=== PATIENT | female | born 2000 | race Caucasian/White ===

== ENCOUNTER 2023-04-25 06:19 | Emergency (ER) | payer OTHER, SELFPAY ==
--- NOTE | ~2023-04-25 | CT_ITS ---
EXAMINATION: CT abdomen pelvis w con DATE: 04/25/2023 08:23 INDICATION: Nausea and vomiting. Abdominal pain. TECHNIQUE: Computed tomography (CT) of the abdomen and pelvis was performed with 100 mL Omnipaque 350 intravenous contrast. Automated exposure control and iterative reconstruction technique were employe d. The dose-length product was 594.39 mGy-cm. COMPARISON: None. FINDINGS: The visualized portions of the lung bases demonstrate minimal atelectasis. No pleural effus ion. The heart size is normal. No pericardial effusion. There is a small sliding hiatal hernia. The l iver, spleen, gallbladder, pancreas, adrenal glands, and kidneys are normal. There are no dilated loo ps of bowel. The appendix is normal. There are no pathologically enlarged lymph nodes. There is no fr ee intraperitoneal fluid. There is mild lumbar spondylosis. IMPRESSION: 1. Small sliding hiatal hernia. Reviewed, dictated and finalized at location A.
[2023-04-25 06:23] VITALS: BP 134/100; PULSE 77; RESP 15; TEMP 35.7; O2SAT 100
[2023-04-25 06:31] VITALS: BP 130/76; PULSE 79; RESP 15; TEMP 36.3; O2SAT 98
[2023-04-25 06:39] LABS: Basophils Percent Auto 0.2 % (0.2-1.2); Eosinophils Absolute Auto 0.1 K/mm3 (0-0.3); Eosinophils Percent Auto 1.1 % (0-4.4); Hematocrit 44.6 % (37.0-47.0); Immature Granulocyte Absolute 0.04 K/mm3 (0.00-0.031); Immature Granulocyte Percent A 0.3 % (0-0.5); Lymphocytes Absolute Auto 1.64 K/mm3 (0.9-3.2); Mean Corpuscular HGB Conc 33.6 g/dl (32-36); Mean Corpuscular Hemoglobin 29.2 pg (26-34); Mean Corpuscular Volume 86.9 fl (80-100); Mean Platelet Volume 9.9 fl (7.4-10.4); Monocytes Absolute Auto 0.5 K/mm3 (0.1-0.6); Monocytes Percent Auto 3.9 % (2.6-8.5); Neutrophils Absolute Auto 9.5 K/mm3 (1.3-6.7); Neutrophils Percent Auto 80.5 % (45.5-73.1); Platelet Count Result 317 k/mm3 (150-375); Red Blood Count 5.13 M/mm3 (4.2-5.4); Red Cell Distribution Width 12.9 % (11.5-14.5); White Blood Count 11.8 K/mm3 (4.5-10.0)
--- NOTE | 2023-04-25 06:40 | ED.ABDPAIN ---
HPI - Abdominal Pain General Chief Complaint: Abdominal Pain <Piedad Stringer MD - Last Filed: 04/25/23 06:49> Stated Complaint: abdominal pain <Piedad Stringer MD - Last Filed: 04/25/23 06:49> Time Seen by Provider: 04/25/23 06:38 <Piedad Stringer MD - Last Filed: 04/25/23 06:49> History of Present Illness HPI narrative: Patient presenting with several hours of nausea, vomiting, diarrhea, worse in the epigastric abdomen. No fevers or chills. No headache. Does have a history of migraines and this feels very different <Piedad Stringer MD - Last Filed: 04/25/23 06:49> Related Data Allergies/Adverse Reactions: Allergies Allergy/AdvReac Type Severity Reaction Status Date / Time No Known Allergies Allergy Verified 04/25/23 06:25 <Piedad Stringer MD - Last Filed: 04/25/23 06:49> Review of Systems Review of Systems: CONST: No fever. HEENT: No sore throat C/V: No chest pain RESP: No cough GI: Reports abdominal pain, nausea, vomiting[, diarrhea] : No dysuria. M/S: No joint pain. SKIN: No rash. NEURO: [No headache or focal numbness or weakness] PSYCH: [No depression] <Piedad Stringer MD - Last Filed: 04/25/23 06:49> Exam Narrative: EXAMINATION OF ORGAN SYSTEMS/BODY AREAS: Constitutional: Vital signs per nursing GENERAL:[No acute distress, non-toxic appearing.] HEAD: Normal with no signs of head trauma. EYES: EOMI, conjunctiva normal ENT: Hearing grossly intact LUNGS: Nonlabored breathing. HEART: [Regular rate and rhythm] ABD: [Soft], [tender to palpation] epigastric abdomen EXT: Normal range of motion SKIN: [No rashes or lesions.] NEURO: [Alert and oriented x 3. No gross focal sensory or strength deficits.] PSYCH: Normal affect <Piedad Stringer MD - Last Filed: 04/25/23 06:49> Course Reevaluation(s) Reevaluation #1: Patient care was signed out to me by the overnight doctor with work-up pending. Patient was afebrile but did have a leukocytosis of 11.8 and a stable hemoglobin of 15. Patient had no significant abnormalities on her CMP and had negative lipase. UA showed no evidence of infection. Patient was still having persistent nausea and vomiting after the Zofran and did improve with IV Reglan. CT scan was ordered due to the patient's persistent pain and did show a sliding hiatal hernia. Patient did feel her symptoms were improved with a GI cocktail. Patient was encouraged to decrease her ibuprofen consumption and patient was encouraged to take omeprazole daily for the next 2 weeks and to have close follow-up with GI. All question concerns were addressed and patient was comfortable with the plan for discharge and close follow-up. <Isaac Talley MD - Last Filed: 04/25/23 17:57> Vital Signs Vital signs: Vital Signs Temperature 96.2 F L 04/25/23 06:23 Pulse Rate 77 04/25/23 06:23 Respiratory Rate 15 04/25/23 06:23 Blood Pressure 134/100 H 04/25/23 06:23 Pulse Oximetry 100 04/25/23 06:23 Oxygen Delivery Room Air 04/25/23 06:23 Temperature 98.0 F 04/25/23 09:24 Pulse Rate 66 04/25/23 09:24 Respiratory Rate 18 04/25/23 09:24 Blood Pressure 113/66 04/25/23 09:24 Pulse Oximetry 99 04/25/23 09:24 Oxygen Delivery Room Air 04/25/23 06:23 <iPedad Stringer MD - Last Filed: 04/25/23 06:49> Vital Signs Temperature 96.2 F L 04/25/23 06:23 Pulse Rate 77 04/25/23 06:23 Respiratory Rate 15 04/25/23 06:23 Blood Pressure 134/100 H 04/25/23 06:23 Pulse Oximetry 100 04/25/23 06:23 Oxygen Delivery Room Air 04/25/23 06:23 Temperature 98.0 F 04/25/23 09:24 Pulse Rate 66 04/25/23 09:24 Respiratory Rate 18 04/25/23 09:24 Blood Pressure 113/66 04/25/23 09:24 Pulse Oximetry 99 04/25/23 09:24 Oxygen Delivery Room Air 04/25/23 06:23 <Isaac Talley MD - Last Filed: 04/25/23 17:57> MDM - Abdominal Pain MDM Narrative Medical decision making narrative: 22F p/w n/v/d and epigastric pain. VS
[2023-04-25 06:48] LABS: Alanine Aminotransferase 21 U/L (6-35); Albumin Level 4.8 g/dL (3.5-5.1); Alkaline Phosphatase 89 U/L (38-126); Anion Gap 13 mmol/L (8-16); Aspartate Amino Transferase 27 U/L (14-36); Bilirubin,Total 0.5 mg/dL (0.2-1.3); Blood Urea Nitrogen 12 mg/dL (7-17); Calcium 9.7 mg/dL (8.4-10.2); Carbon Dioxide 22 mmol/L (22-30); Chloride 105 mmol/L (98-107); Estimated CRCL calculation 129 ml/min; Estimated Glomerular Filt Rate > 60; Glucose 123 mg/dL (65-110); Lipase 126 U/L (23-300); Potassium 3.9 mmol/L (3.4-5.0); Sodium 140 mmol/L (137-145)
[2023-04-25] MEDS: ONDANSETRON INJ 4 MG/2 ML VIAL IV PUSH (06:48)
[2023-04-25] MEDS: FAMOTIDINE 20 MG/2 ML VIAL IV PUSH (06:52)
[2023-04-25] MEDS: LACTATED RINGERS 1,000 ML 999 ML IV CONT (06:52)
[2023-04-25 07:18] LABS: Appearance Urine Clear (Clear); Bacteria Urine None Seen /hpf; Bilirubin Urine Negative (Negative); Blood Urine Negative (Negative); Color Urine Yellow (Yellow); Glucose Urine UA Negative (Negative); Ketones Urine Trace mg/dL (Negative); Leukocyte Esterase Ur Negative LEU/UL (Negative); Nitrate Urine Negative (Negative); Non Pathogenic Casts 0-2; Protein Urine Trace mg/dL (Negative); RBC Urine 0-2 /hpf (0-2); Specific Grav Ur 1.019 (1.001-1.035); Squamous Epithelial Cell Urine Occasional /hpf (Few); Urobilinogen Urine 0.2 mg/dL (<2.0); pH Urine >=9.0 (5.0-9.0)
[2023-04-25 07:25] VITALS: BP 124/90; PULSE 79; RESP 16; TEMP 36.8; O2SAT 100
[2023-04-25 07:36] LABS: Add Urine Microscopic? YES
--- NOTE | 2023-04-25 07:36 | PC.NURSE ---
Called to pt room. Pt states I don't feel any different. I'm still nauseated Dr. Talley informed new orders received.
[2023-04-25] MEDS: METOCLOPRAMIDE HCL INJ 10 MG/2 ML VIAL IV PUSH (07:41)
[2023-04-25] MEDS: BELLADONNA ALK/PHENOB ELIX 10 ML, MAG HYDROX/ALUMINUM HYD/SIMETH 30 ML, LIDOCAINE HCL 2... PO (08:15)
[2023-04-25 09:24] VITALS: BP 113/66; PULSE 66; RESP 18; TEMP 36.7; O2SAT 99
== END 2023-04-25 09:35 | disposition home or self-care (01) ==
PROVIDERS: Emergency Provider Emergency Medicine
DX: R11.2 Nausea with vomiting, unspecified (principal); R10.13 Epigastric pain; K44.9 Diaphragmatic hernia without obstruction or gangrene
CPT/HCPCS: 36415; 74177; 80053; 81001; 81025; 83690; 85025; 87086; 87088; 96361; 96374; 96375; 99284; J2405; J2765; J7120; Q9967

== ENCOUNTER 2023-10-01 11:50 | Emergency (ER) | payer MEDICAID, SELFPAY ==
[2023-10-01 11:57] VITALS: BP 129/92; PULSE 95; RESP 16; TEMP 37.3; O2SAT 99
--- NOTE | 2023-10-01 12:06 | ED.GENADULT ---
HPI - General Adult General Chief complaint: Nausea/Vomiting/Diarrhea Stated complaint: nausea vomiting Time Seen by Provider: 10/01/23 11:53 History of Present Illness HPI narrative: 22-year-old female presenting to the emergency department for evaluation onset of nausea, dry heaves, epigastric abdominal pain that started approximately 1 hour prior to arrival. Patient denies any prior history of pancreatitis denies any prior history of gallbladder disease. Related Data Allergies Allergy/AdvReac Type Severity Reaction Status Date / Time No Known Allergies Allergy Verified 04/25/23 06:25 Review of Systems Review of Systems: All systems reviewed & are unremarkable except as noted in HPI and below Exam Narrative: APPEARANCE: Well appearing, no pain, no distress, well-nourished. HEAD: normocephalic, atraumatic. EYES: PERRLA/EOMI, conjunctivae clear. NOSE: Normal no drainage EARS:TMS clear with good light reflex. THROAT: Pharynx clear, no exudate. NECK: Supple. No adenopathy, no masses. RESPIRATORY: Airway patent, respirations nonlabored. Clear to auscultation bilaterally, no rales, rhonchi, wheezing. CARDIOVASCULAR: Regular rate and rhythm without murmurs rubs or gallops. ABDOMINAL: Epigastric tenderness to palpation MUSCULOSKELETAL: Moves all extremities. Strength/ROM intact, No edema, No calf tenderness. NEURO: Alert. Cranial nerves II through XII intact. Grossly intact SKIN: Warm, dry. Normal Color Course Course Emergency Course: Patient felt improved with treatment and was discharged home with outpatient follow-up Vital Signs Vital signs: Vital Signs Temperature 99.1 F 10/01/23 11:57 Pulse Rate 95 10/01/23 11:57 Respiratory Rate 16 10/01/23 11:57 Blood Pressure 129/92 H 10/01/23 11:57 Pulse Oximetry 99 10/01/23 11:57 Oxygen Delivery Room Air 10/01/23 11:57 Temperature 99.1 F 10/01/23 11:57 Pulse Rate 65 10/01/23 14:41 Respiratory Rate 20 10/01/23 14:41 Blood Pressure 126/76 10/01/23 14:41 Pulse Oximetry 99 10/01/23 14:41 Oxygen Delivery Room Air 10/01/23 11:57 Medical Decision Making [facility] Narrative Medical decision making narrative: 22-year-old female presents emergency department for evaluation of dry he and nausea. Patient is afebrile with no leukocytosis, hemoglobin is 15.53. No acute findings on her CMP. UA is negative for infection. Patient had negative lipase. On re-evaluation patient does feel improved. Patient and family were updated on the results of workup and plan for treatment for home. All questions concerns were addressed. Vital Signs Vital Signs: Vital Signs Temperature 99.1 F 10/01/23 11:57 Pulse Rate 95 10/01/23 11:57 Respiratory Rate 16 10/01/23 11:57 Blood Pressure 129/92 H 10/01/23 11:57 Pulse Oximetry 99 10/01/23 11:57 Oxygen Delivery Room Air 10/01/23 11:57 Temperature 99.1 F 10/01/23 11:57 Pulse Rate 65 10/01/23 14:41 Respiratory Rate 20 10/01/23 14:41 Blood Pressure 126/76 10/01/23 14:41 Pulse Oximetry 99 10/01/23 14:41 Oxygen Delivery Room Air 10/01/23 11:57 Lab Data 10/01/23 12:35 10/01/23 12:35 Labs: Lab Results 10/01/23 10/01/23 Range/Units 12:35 13:00 WBC 8.7 (4.5-10.0) K/mm3 RBC 5.08 (4.2-5.4) M/mm3 Hgb 15.3 H (12.0-15.0) g/dL Hct 43.8 (37.0-47.0) % MCV 86.2 (80-100) fl MCH 30.1 (26-34) pg MCHC 34.9 (32-36) g/dl RDW 12.1 (11.5-14.5) % Plt Count 376 H (150-375) k/mm3 MPV 10.1 (7.4-10.4) fl Immature Gran % (Auto) 0.2 (0-0.5) % Neut % (Auto) 67.9 (45.5-73.1) % Lymph % (Auto) 24.0 (18.3-44.2) % [place] % (Auto) 5.8 (2.6-8.5) % Eos % (Auto) 1.8 (0-4.4) % Baso % (Auto) 0.3 (0.2-1.2) % Lymph # (Auto) 2.08 (0.9-3.2) K/mm3 [place] # (Auto) 0.5 (0.1-0.6) K/mm3 Eos # (Auto) 0.2 (0-0.3) K/mm3 Baso # (Auto) 0.0 (0.0-0.1) K/mm3 Abs Immat Gran (auto) 0.02 (0.00-0.
[2023-10-01] MEDS: SODIUM CHLORIDE 0.9% IV 1,000 ML 999 ML IV CONT (12:24)
[2023-10-01] MEDS: fentaNYL CITRATE INJ (*CRX) 100 MCG/2 ML VIAL 50 MCG IV PUSH (12:25)
[2023-10-01] MEDS: ONDANSETRON INJ 4 MG/2 ML VIAL IV PUSH (12:26)
[2023-10-01] MEDS: PANTOPRAZOLE SODIUM IV 40 MG VIAL IV PUSH (12:26)
[2023-10-01 12:44] LABS: Basophils Percent Auto 0.3 % (0.2-1.2); Eosinophils Absolute Auto 0.2 K/mm3 (0-0.3); Eosinophils Percent Auto 1.8 % (0-4.4); Hematocrit 43.8 % (37.0-47.0); Hemoglobin 15.3 g/dL (12.0-15.0); Immature Granulocyte Absolute 0.02 K/mm3 (0.00-0.031); Immature Granulocyte Percent A 0.2 % (0-0.5); Lymphocytes Absolute Auto 2.08 K/mm3 (0.9-3.2); Mean Corpuscular HGB Conc 34.9 g/dl (32-36); Mean Corpuscular Hemoglobin 30.1 pg (26-34); Mean Corpuscular Volume 86.2 fl (80-100); Mean Platelet Volume 10.1 fl (7.4-10.4); Monocytes Absolute Auto 0.5 K/mm3 (0.1-0.6); Monocytes Percent Auto 5.8 % (2.6-8.5); Neutrophils Absolute Auto 5.9 K/mm3 (1.3-6.7); Neutrophils Percent Auto 67.9 % (45.5-73.1); Platelet Count Result 376 k/mm3 (150-375); Red Blood Count 5.08 M/mm3 (4.2-5.4); Red Cell Distribution Width 12.1 % (11.5-14.5); White Blood Count 8.7 K/mm3 (4.5-10.0)
[2023-10-01 12:55] LABS: Alanine Aminotransferase 16 U/L (6-35); Albumin Level 4.8 g/dL (3.5-5.1); Alkaline Phosphatase 88 U/L (38-126); Anion Gap 11 mmol/L (8-16); Aspartate Amino Transferase 26 U/L (14-36); Bilirubin,Total 0.5 mg/dL (0.2-1.3); Blood Urea Nitrogen 13 mg/dL (7-17); Calcium 9.9 mg/dL (8.4-10.2); Carbon Dioxide 20 mmol/L (22-30); Chloride 109 mmol/L (98-107); Estimated Glomerular Filt Rate > 60; Glucose 110 mg/dL (65-110); Lipase 61 U/L (23-300); Potassium 3.5 mmol/L (3.4-5.0); Sodium 140 mmol/L (137-145)
[2023-10-01 13:06] VITALS: BP 121/87; PULSE 60; RESP 18; O2SAT 99
[2023-10-01 13:10] LABS: Appearance Urine Clear (Clear); Bilirubin Urine Negative (Negative); Blood Urine Negative (Negative); Color Urine Yellow (Yellow); Glucose Urine UA Negative (Negative); Ketones Urine Negative (Negative); Leukocyte Esterase Ur Negative LEU/UL (Negative); Nitrate Urine Negative (Negative); Protein Urine Negative (Negative); Specific Grav Ur 1.014 (1.001-1.035); Urobilinogen Urine 0.2 mg/dL (<2.0)
[2023-10-01 13:22] LABS: Add Urine Microscopic? NO
[2023-10-01 14:41] VITALS: BP 126/76; PULSE 65; RESP 20; O2SAT 99
== END 2023-10-01 14:42 | disposition home or self-care (01) ==
PROVIDERS: Emergency Provider Emergency Medicine
DX: R11.0 Nausea (principal)
CPT/HCPCS: 36415; 80053; 81003; 81025; 83605; 83690; 85025; 96361; 96374; 96375; 99284; C9113; J2405; J3010; J7030